=== PATIENT | female | born 1985 | race Caucasian/White ===

== ENCOUNTER 2017-01-17 05:14 | Emergency (ER) | payer OTHER ==
[~2017-01-17] VITALS: Ht 162.6 cm; Wt 145.5 kg
[~2017-01-17 05:14] MED LIST: UNKNOWN MED
[2017-01-17 05:22] VITALS: Ht 162.6 cm; Wt 145.5 kg
--- NOTE | 2017-01-17 06:37 | ERD ---
ER Documentation Chief Complaint Date/Time DATE: 01/17/17 TIME: 06:14 Chief Complaint lump in throat x4 months off and on. states sometimes hard to eat, swallow HPI 32-year-old female presents emergency department for multiple complaints including a lump in her throat 4 months, headache that is on and off for 3 months.. Stated that she believes "there is an Singh apple that is growing in my throat." Denies that this is the worst headache of her life, loss of consciousness, dizziness, blurry vision, changes in vision, photophobia, facial pain, ear pain , throat pain, difficulty swallowing, neck pain, shoulder pain, chest pain, cough, hemoptysis, abdominal pain, back pain, loss of appetite, nausea, vomiting , hematochezia, diarrhea, constipation, urinary symptoms, , the possibility of being , bladder and bowel incontinences, extremity weakness, extremity tenderness, numbness or tingling sensation, difficulty walking, recent travel, recent exposure to illness, recent antibiotic use in the last 3 months, fever, chills. Allergy: No known drug allergies. PMH: Patient is a poor historian. Family medical history: Denies. AO LMP: "Last month, December 30." Medications: Denies. Surgery: Ovarian cyst surgery. Primary Social History: Stated that she is not working at this time and she is on SSI. Occasional drinks alcoholic beverages. 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 Denies smoking cigarettes. ROS All systems reviewed and are negative except as per history of present illness. Medications Home Meds Reported Medications [Unknown Med] No Conflict Check 09/17/10 Allergies Allergies: Coded Allergies: No Known Drug Allergies (Verified Allergy, Mild, 05/30/14) PMhx/Soc Hx Respiratory Disorders: Yes Hx Cardiac Disorders: Yes (HTN) Hx Psychiatric Problems: Yes (schizophenia) Hx Miscellaneous Medical Probl: Yes (arhtritis) Hx Alcohol Use: No Hx Substance Use: No Hx Tobacco Use: No Smoking Status: Never smoker Physical Exam Vitals Vital Signs Date Time Temp Pulse Resp B/P Pulse Ox O2 Delivery O2 Flow Rate FiO2 01/17/17 05:22 98.0 95 22 133/89 94 Physical Exam CONSTITUTIONAL: Well-appearing; well-nourished; in no apparent distress. HEAD: Normocephalic; atraumatic. EYES: Conjunctiva clear, sclera non-icteric, EOM intact. PERRLA. Ears: Hearing intact. EACs clear, TMs non-bulging, non-inflamed, translucent & mobile, ossicles normal appearance, No obstructions, no erythema, no discharges Nose: No obstructions. No polyps. No external lesions. Mucosa non-inflamed. No external lesions, septum and turbinates normal. No rhinorrhea. No discharges. Frontal sinus is non-tender to palpation. Maxillary sinus is non-tender to palpation. MOUTH: Moist mucous membranes, no lesion, no obstructions, no vesicles, no thrush, patent airway Throat: Uvula in midline. Right tonsil is +1 with no erythema, no exudate. Left tonsil is +1 with no erythema, no exudate. Tolerating secretions well. Good gag reflex. Patent airway. Neck: Supple, without lesions, bruits, or adenopathy. No mass. Thyroid non- enlarged and non-tender to palpation. Full and good range of motion. No swelling. No mass. CHEST: Symmetrical chest. Respirations even and not labored. No retractions noted. CARDIOVASCULAR: Normal S1, S2. RRR. No murmurs, gallops. RESPIRATORY: Normal chest excursion with respiration; breath sounds clear and equal bilaterally; no wheezes, rhonchi, or rales. Breathing even and unlabored. Speaking in clear, full, and complete sentences w/ ease. ABDOMEN: Normal bowel sounds normal. Soft, round, non-distended, non-guarding, no tenderness, no rebound, no organomegaly, no masses, no pulsating abdominal mass. No hernia. No peritoneal signs. : No CVA tenderness. BACK: Symmetrical shoulder. Spine is midline without deformity, tenderness. No evidence of trauma or deformity. PELVIS: Stable pelvis. No evidence of trauma or deformity. MUSCULOSKELETAL: Normal gait and station. No misalignment, asymmetry, crepitation, defects, tenderness, masses, effusions, decreased range of motion, instability, atrophy or abnormal strength or tone in the head, neck, spine, ribs , pelvis or extremities. No calf tenderness. NEUROVASCULAR: Distal pulses are present. Pedal pulse are present, equal, and normal. Capillary refills are < 2 seconds. NEUROLOGIC: Alert and oriented x4. Speaks full and clear sentences. Cranial Nerves II-XII normal. Sensation to pain, touch, and proprioception normal. Grossly unremarkable. No neurologic deficits. Romberg test is negative. PSYCHOLOGICAL: The patients mood and manner are appropriate. No hallucinations , delusions. Not SI. Not HI. Has the capacity to decide for self SKIN: Normal for age and ethnicity; warm; dry; good turgor; no apparent lesions or exudates. No rashes, hives, discoloration. Intact. Procedures/MDM Examination: Please see physical examination. Disease process, medical treatment was explained to the patient and family member. They verbalized understanding and follow-up care. Differential diagnosis: Peritonsillar abscess versus strep throat versus pharyngitis versus tonsillitis Medical decision makin-year-old female presents emergency department for multiple complaints including a lump in her throat 4 months, headache that is on and off for 3 months.. Stated that she believes "there is an Singh apple that is growing in my throat." Unremarkable physical examination. Patient's complaint, patient's history about her complaint, my physical findings are consistent my final diagnosis of throat pain. Patient eloped after I have gathered HPI, did a physical examination, after explained to her the disease process and that she needs to see her primary care physician for this and that she is stable to go home. Hemodynamically stable before patient eloped. Departure Diagnosis: Primary Impression: Multiple complaints Condition: Stable Additional Instructions: Instructed to follow-up with his PCP in 24-48 hours. PCP to refer patient to [facility] in the next 24-48 hours. Instructed to Call 911 for chest pain, shortness of breath. Advised to come back here in ED as soon as possible for severity of symptoms which includes but not limited to: any new symptoms; shortness of breath/difficulty of breathing; cardiovascular changes; severe gastrointestinal symptoms; signs and symptoms of bleeding and or infection; signs of compartment syndrome/neurovascular changes; neurological changes/deficits. DODIE CAI Jan 17, 2017 06:37
== END 2017-01-17 06:22 | disposition left against medical advice (07) ==
LOC: FTE 05:14
DX: R22.1 Localized swelling, mass and lump, neck (principal); I10 Essential (primary) hypertension
CPT/HCPCS: 99282